=== PATIENT | female | born 1960 | race Caucasian/White ===

== ENCOUNTER 2017-04-27 17:05 | Emergency (ER) | payer MEDICARE, OTHER, MEDICAID ==
[2017-04-27] MEDS ORDERED: Ondansetron 4 MG Tab.DIS PO ONE ×2 (17:06→18:08)
[2017-04-27 17:42] VITALS: BP 127/67
--- NOTE | 2017-04-27 17:58 | EDM.PDOC ---
ED HPI GENERAL MEDICAL PROBLEM - General Chief Complaint: General Stated Complaint: nausea Time Seen by Provider: 04/27/17 17:30 Source of Information: Reports: Patient History Limitations: Reports: No Limitations - History of Present Illness INITIAL COMMENTS - FREE TEXT/NARRATIVE: This patient is a 57 year old female that presents to the ER. Patient is from detention. She has a history of contractures and is in a detention. Patient is alert and oriented. Patient reports that she had some nasuea and vomited today around noon. She reports that after she vomited a couple of times , then she had blood in her vomit, but was unsure if it was from vomit or nosebleed. Patient reports the last few days she has had some congestion, drainage, and a bloody nose from left nare. Patient reports blood she had was bright red. Patient has bright red blood in left nare, none to throat. Patient reports having "gas" to the right chest/upper abd, not central. Patient denies davis, dizziness, d, f, cough, neck pain, chest pain, sob, abd pain, urinary/bowel changes. Onset: Today Onset Date: 04/27/17 Onset Time: 12:00 Severity: Mild Improves with: Reports: None Worsens with: Reports: None Associated Symptoms: Reports: Nausea/Vomiting. Denies: Confusion, Chest Pain, Cough, cough w sputum, Diaphoresis, Fever/Chills, Headaches, Loss of Appetite, Malaise, Rash, Seizure, Shortness of Breath, Syncope, Weakness - Related Data Allergies Allergy/AdvReac Type Severity Reaction Status Date / Time amoxicillin Allergy Cannot Verified 04/27/17 17:17 Remember amoxicillin trihydrate Allergy Cannot Verified 04/27/17 17:17 [From Augmentin] Remember codeine Allergy Cannot Verified 04/27/17 17:17 Remember potassium clavulanate Allergy Cannot Verified 04/27/17 17:17 [From Augmentin] Remember Home Meds: Home Meds Acetaminophen [Tylenol] 325 - 650 mg PO Q6H PRN 01/21/16 [History] Acetaminophen [Tylenol] 650 mg PO DAILY 01/21/16 [History] Bisacodyl [Dulcolax] 5 - 10 mg PO DAILY PRN 01/21/16 [History] Cholecalciferol (Vitamin D3) [Vitamin D] 5,000 units PO DAILY 01/21/16 [History] Cyanocobalamin (Vitamin B12) [Vitamin B12] 500 mcg PO DAILY 01/21/16 [History] Cyclobenzaprine [Flexeril] 10 mg PO DAILY 01/21/16 [History] DULoxetine [Cymbalta] 20 mg PO DAILY 01/21/16 [History] Esomeprazole [NexIUM] 40 mg PO DAILY 01/21/16 [History] Folic Acid [Folic Acid] 1 mg PO DAILY 01/21/16 [History] Gemfibrozil [Gemfibrozil] 600 mg PO BID 01/21/16 [History] Loratadine [Claritin] 10 mg PO DAILY PRN 01/21/16 [History] Magnesium Oxide [Magnesium Oxide] 250 mg PO DAILY 01/21/16 [History] Methylcellulose [Fiber] 1,000 mg PO BID 01/21/16 [History] Mylanta 30 ml PO QID PRN 01/21/16 [History] Polyethylene Glycol 3350 [MiraLAX] 17 gm PO DAILY 01/21/16 [History] Psyllium Husk [Metamucil] 2 tsp PO DAILY 01/21/16 [History] Ranitidine [Zantac] 150 mg PO DAILY 01/21/16 [History] Simethicone [Gas-X] 80 mg PO DAILY PRN 01/21/16 [History] Past Medical History Musculoskeletal History: Reports: RA Oncologic (Cancer) History: Reports: Non-Hodgkin's Lymphoma - Past Surgical History HEENT Surgical History: Reports: Tonsillectomy GI Surgical History: Reports: Cholecystectomy Social & Family History - Family History Family Medical History: Noncontributory - Tobacco Use Smoking Status *Q: Never Smoker Second Hand Smoke Exposure: No ED ROS GENERAL - Review of Systems Review Of Systems: See Below Constitutional: Reports: No Symptoms HEENT: Reports: Nosebleed (left nare), Rhinitis, Sinus Problem (congestion) Respiratory: Reports: No Symptoms Cardiovascular: Reports: No Symptoms Endocrine: Reports: No Symptoms GI/Abdominal: Reports: Nausea, Vomiting, Other ("gas right upper adb, for 3 days."). Denies: Abdominal Pain : Reports: No Symptoms Musculoskeletal: Reports: No Symptoms Skin: Reports: No Symptoms Neurological: Reports: No Symptoms Psychiatric: Reports: No Symptoms Hematologic/Lymphatic: Reports: No Symptoms Immunologic: Reports: No Symptoms ED EXAM, GENERAL - Physical Exam Exam: See Below Exam Limited By: No Limitations General Appearance: Alert, WD/WN, No Apparent Distress Eye Exam: Bilateral Eye: Normal Inspection, PERRL Ears: Normal External Exam, Normal Canal, Hearing Grossly Normal, Normal TMs Ear Exam: Bilateral Ear: Auricle Normal, Canal Normal, TM normal Nose: Normal Mucosa, Other (bright red blood left nare. No active epitaxis. ). No: No Blood Throat/Mouth: Normal Inspection, Normal Lips, Normal Teeth, Normal Gums, Normal Oropharynx, Normal Voice, No Airway Compromise, Other (No blood to back of throat or mouth. ) Head: Atraumatic, Normocephalic Neck: Normal Inspection, Supple, Non-Tender, Full Range of Motion Respiratory/Chest: No Respiratory Distress, Lungs Clear, Normal Breath Sounds, No Accessory Muscle Use, Chest Non-Tender Cardiovascular: Normal Peripheral Pulses, Regular Rate, Rhythm (90 on exam.), No Edema, No Gallop, No JVD, No Murmur, No Rub Peripheral Pulses: 2+: Radial (L), Radial (R), Posterior Tibial (L), Posterior Tibial (R) GI/Abdominal: Normal Bowel Sounds, Soft, Non-Tender, No Organomegaly, No Distention, No Abnormal Bruit, No Mass, Pelvis Stable Back Exam: Normal Inspection, Full Range of Motion. No: CVA Tenderness (L), CVA Tenderness (R) Extremities: Normal Inspection, Normal Range of Motion, Non-Tender, No Pedal Edema, Normal Capillary Refill Neurological: Alert, Oriented Psychiatric: Normal Affect, Normal Mood Skin Exam: Warm, Dry, Intact, Normal Color, No Rash Lymphatic: No Adenopathy EKG INTERPRETATION EKG Date: 04/27/17 Time: 17:38 Rhythm: Other (tachy) Rate (Beats/Min): 104 MD/PQ Interval: no ST elevation Comparison: NA - No Prior EKG Course - Vital Signs Last Recorded V/S: Last Vital Signs Temp 98.2 F 04/27/17 17:40 Pulse 102 H 04/27/17 17:40 Resp 18 04/27/17 17:40 BP 127/67 04/27/17 17:40 Pulse Ox 97 04/27/17 17:40 - Orders/Labs/Meds Labs: Laboratory Tests 04/27/17 04/27/17 Range/Units 17:40 17:40 WBC 6.7 (5.0-10.0) 10^3/uL RBC 4.60 (4.00-5.50) 10^6/uL Hgb 12.5 (12.0-16.0) g/dL Hct 38.0 (37.0-47.0) % MCV 82.6 (82.0-94.0) fL MCH 27.2 (27.0-32.0) pg MCHC 32.9 L (33.0-38.0) g/dL RDW Coeff of Kelly 14.1 (11.0-15.0) % Plt Count 186 (150-400) 10^3/uL Neut % (Auto) 61.2 (35-85) % Lymph % (Auto) 32.3 (10-55) % [place] % (Auto) 6.4 (0-16) % Eos % (Auto) 0 (0-5) % Baso % (Auto) 0.1 (0-3) % Neut # (Auto) 4.12 (1.80-7.00) 10^3/uL Lymph # (Auto) 2.18 (1.00-4.80) 10^3/uL [place] # (Auto) 0.43 (0.00-0.80) 10^3/uL Eos # (Auto) 0.00 (0.00-0.45) 10^3/uL Baso # (Auto) 0.01 10^3/uL Sodium 140 (136-145) mEq/L Potassium 3.7 (3.5-5.0) mEq/L Chloride 102 (98-106) mEq/L Carbon Dioxide 26 (21-32) mmol/L BUN 14 (7-18) mg/dL Creatinine 0.7 (0.6-1.0) mg/dL Est Cr Clr Drug Dosing 65.02 mL/min Estimated GFR (MDRD) > 60 (>=60) mL/min Glucose 100 H (75-99) mg/dL Calcium 10.2 H (8.4-10.1) mg/dL Total Bilirubin 0.5 (0.0-1.0) mg/dL AST 28 (15-37) U/L ALT 31 (12-78) U/L Alkaline Phosphatase 91 (46-116) U/L Troponin I < 0.017 (0.00-0.06) ng/mL Total Protein 9.8 H (6.4-8.2) g/dL Albumin 4.4 (3.4-5.0) g/dL Meds: Medications Discontinued Medications Generic Name Dose Route Start Last Admin Trade Name Eloisa PRN Reason Stop Dose Admin Ondansetron HCl 4 mg 04/27/17 18:08 04/27/17 18:17 Zofran Odt PO 04/27/17 18:09 4 mg ONETIME ONE Administration Ondansetron HCl 2 packet 04/27/17 18:43 Take Home: Ondansetron Odt 4 Mg, 2 Tab Pack PO 04/27/17 18:44 ONETIME ONE Departure - Departure Time of Disposition: 18:40 Disposition: Home, Self-Care 01 Condition: Good Clinical Impression: Acute posterior epistaxis Vomiting Qualifiers: Vomiting type: unspecified Vomiting Intractability: non-intractable Nausea presence: without nausea Qualified Code(s): R11.11 - Vomiting without nausea - Discharge Information Instructions: Nausea, Adult, Nosebleed, [id number] Referrals: Michael Villanueva MD [Primary Care Provider] - Forms: ED Department Discharge Additional Instructions: Followup with your primary care provider Return to the ER for worsening of condition or any emergent concerns Increase fluids Use nose clamp as needed Zofran 4mg 1 pill every 4 hours as needed for nausea #4 take home - Assessment/Plan Plan: PLEASE SEE RN NOTE FOR PFSH.
[2017-04-27 18:00] LABS: CHLORIDE,CL 102 mEq/L (98-106); SODIUM,NA 140 mEq/L (136-145)
[2017-04-27] MEDS ORDERED: Take Home: Ondansetron 4 MG Tab.DIS, 2 Tab Pack PO ONE (18:43)
== END 2017-04-27 19:00 | disposition home or self-care (01) ==
LOC: CC.ED 17:05
DX: R11.2 Nausea with vomiting, unspecified (principal); R04.0 Epistaxis; Z90.49 Acquired absence of other specified parts of digestive tract; Z79.899 Other long term (current) drug therapy; Z88.1 Allergy status to other antibiotic agents; Z88.5 Allergy status to narcotic agent; Z88.8 Allergy status to other drugs, medicaments and biological substances
CPT/HCPCS: 36415; 80053; 84484; 85025; 93005; 99283; A9270; 93010